=== PATIENT | female | born 2005 | race Caucasian/White ===

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

== ENCOUNTER 2024-06-14 03:51 | Emergency (ER) | payer OTHER ==
[~2024-06-14] VITALS: Ht 152.4 cm; Wt 45.4 kg
[~2024-06-14 03:51] MED LIST changes: +BACTRIM DS TAB1 EACH PO; +PEPCID40 MG PO; +PROTONIX40 MG PO; +ZOFRAN8 MG PO
[2024-06-14] MEDS ORDERED: RINGERS SOLUTION,LACTATED 1,000 ML IV STA (06:01)
[2024-06-14] MEDS ORDERED: FAMOtidine 10 MG/ML (4ML VIAL) IV PUSH STA (06:02)
[2024-06-14] MEDS ORDERED: KETOROLAC TROMETHAMINE 15 MG VIAL IV STA (06:02)
[2024-06-14] MEDS ORDERED: HYOSCYAMINE SULFATE 0.125 MG TAB.SUBL SL ONE (06:15)
[2024-06-14 07:19] LABS: HEMATOCRIT 36.6 % (36.0-45.00); HEMOGLOBIN 12.7 g/dL (12.0-15.00); MEAN CELL VOLUME 87.5 fL (80.00-100.00); MEAN CORPUSCULAR HEMOGLOBIN 30.4 pg (27.00-32.0); MEAN CORPUSCULAR HGB CONC 34.7 g/dl (32.0-36.0); PLATELET COUNT 171 K/uL (150-450); RED BLOOD COUNT 4.18 M/uL (4.00-6.00); RED CELL DISTRIBUTION WIDTH 13.4 % (11.5-14.5)
[2024-06-14 07:30] LABS: ALBUMIN 3.8 gm/dL (3.4-5.0); BILIRUBIN TOTAL 0.55 mg/dL (0.3-1.2); CALCIUM 9.2 mg/dL (8.5-10.1); CREATININE SERUM 0.54 mg/dL (0.55-1.02); GFR 145.44; GLOBULINA 3.2 G/DL (2.4-3.5); POTASSIUM 3.97 mEq/L (3.5-5.1)
== END 2024-06-14 12:04 | disposition home or self-care (01) ==
LOC: ER 03:53 → EMR PED 04:05 → ER 04:05 → EMR PED 12:04
DX: K20.80 Other esophagitis without bleeding (principal)

== ENCOUNTER 2024-09-11 18:05 | Emergency (ER) | payer OTHER ==
[~2024-09-11] VITALS: Ht 152.4 cm; Wt 48.1 kg
[2024-09-11 23:09] LABS: HEMATOCRIT 37.6 % (36.0-45.00); HEMOGLOBIN 12.9 g/dL (12.0-15.00); MEAN CORPUSCULAR HEMOGLOBIN 30.6 pg (27.00-32.0); MEAN CORPUSCULAR HGB CONC 34.4 g/dl (32.0-36.0); PLATELET COUNT 216 K/uL (150-450); RED BLOOD COUNT 4.22 M/uL (4.00-6.00); RED CELL DISTRIBUTION WIDTH 13.3 % (11.5-14.5)
== END 2024-09-12 01:12 | disposition home or self-care (01) ==
LOC: ER 18:07 → EMR PED 18:07
PROVIDERS: Emergency Medicine Pediatric Emergency Medicine
DX: J00 Acute nasopharyngitis [common cold] (principal); J40 Bronchitis, not specified as acute or chronic; Z20.822 Contact with and (suspected) exposure to COVID-19

== ENCOUNTER 2025-04-26 01:20 | Emergency (ER) | payer OTHER ==
[~2025-04-26] VITALS: Ht 152.4 cm; Wt 48.5 kg
[2025-04-26] MEDS ORDERED: ONDANSETRON HCL 2 MG/ML VIAL ONE (01:31)
[2025-04-26] MEDS ORDERED: FAMOTIDINE/PF 20 MG/2 ML VIAL ONE (01:32)
[2025-04-26] MEDS ORDERED: 0.9 % SODIUM CHLORIDE 1,000 ML IV STA (01:41)
[2025-04-26] MEDS ORDERED: FAMOTIDINE/PF 20 MG/2 ML VIAL IV STA (01:42)
[2025-04-26] MEDS ORDERED: ONDANSETRON HCL 2 MG/ML VIAL IV STA (01:42)
[2025-04-26 01:58] LABS: BASO % 0.2 % (0.1-1.2); EOS # 0.00 (0.04-0.54); EOS % 0.0 % (0.7-7.0); LYMPH # 1.09 (1.18-3.74); LYMPH % 6.2 % (19.3-53.1); MEAN PLATELET VOLUME 10.50 fl (9.4-12.4); MONO # 1.08 (0.24-0.82); MONO % 6.1 % (4.7-12.5); NEUT # 15.30 (1.56-6.13); NEUT % 87.1 % (34.0-71.1); RED CELL DISTRIBUTION WIDTH 12.5 % (11.6-14.4)
[2025-04-26 02:48] LABS: ALT/SGPT 18 U/L (12-78); AST/SGOT 19 U/L (15-37); BILIRUBIN TOTAL 0.70 mg/dL (0.3-1.2); BUN CREA RATIO 30 (7.0-25.0); CREATININE SERUM 0.64 mg/dL (0.55-1.02); GFR 118.30; GLOBULINA 4.0 G/DL (2.4-3.5); GLUCOSE FASTING 105 mg/dL (65-100); OSMOLALITY SERUM 278 MOSM/KG (275-295)
== END 2025-04-26 09:26 | disposition home or self-care (01) ==
LOC: ER 01:20 → EMR PED 01:22 → ER 01:22 → EMR PED 09:26
PROVIDERS: Physician Assistant Medical
DX: K52.89 Other specified noninfective gastroenteritis and colitis (principal); E86.0 Dehydration